=== PATIENT | male | born 1975 | race Two or more races ===

== ENCOUNTER 2021-07-16 17:55 | Emergency (ER) | payer OTHER ==
[~2021-07-16] VITALS: Ht 167.6 cm; Wt 63.5 kg
--- NOTE | 2021-07-16 18:21 | NUR ---
TO ER BED 13, C/O DIARRHEA SINCE 07/09/2021,2 DAYS AFTER TAKING DOXYCYCLINE WHICH HE DISCONTINUED AT THAT TIME, AAOX3, BREATHING EVEN AND NON LABORED
[2021-07-16 18:27] VITALS: BP 125/87
--- NOTE | 2021-07-16 18:34 | NUR ---
TO ER BED 13 AWAITING MD MATTHEWS
--- NOTE | 2021-07-16 19:15 | NUR ---
DR RED AT BEDSIDE
[2021-07-16] MEDS ORDERED: VANC125C11 PO (19:22)
--- NOTE | 2021-07-16 19:32 | NUR ---
Patient discharged to home in stable condition. Written and verbal after care instructions given. Patient verbalizes understanding of instruction.
== END 2021-07-16 19:33 | disposition home or self-care (01) ==
LOC: ER 18:28
DX: R19.7 Diarrhea, unspecified (principal); Z88.6 Allergy status to analgesic agent; Z88.8 Allergy status to other drugs, medicaments and biological substances